=== PATIENT | female | born 1985 | race African-American/Black ===

== ENCOUNTER 2024-05-07 21:07 | Emergency (ER) | payer OTHER ==
[2024-05-07 21:12] VITALS: RESP 18; BMI 31.0
[2024-05-07] MEDS: SODIUM CHLORIDE 0.9% 500 ML INFUS.BAG IV ONE (21:57)
[2024-05-07 22:01] LABS: BASO % 1.3 % (0-2.0); EOS % 0.6 % (0-4.5); HEMATOCRIT 43.7 % (32.4-45.2); HEMOGLOBIN 15.2 GM/dL (10.7-15.3); LYMPH % 28.4 % (8-40); MCH 29.2 pg (25.7-33.7); MCHC 34.9 g/dl (32.0-36.0); MEAN CELL VOLUME 83.7 fl (80-96); MEAN PLT VOLUME 8.6 fl (7.5-11.1); MONO % 19.3 % (3.8-10.2); NEUT % 50.4 % (42.8-82.8); PLATELET COUNT 344 10^3/uL (134-434); RBC 5.22 M/mm3 (3.60-5.2); RDW 14.2 % (11.6-15.6)
[2024-05-07 22:05] LABS: EPI CELLS 22 /uL (0-25.1); HYALINE CASTS 6 /uL (0-3.1); PH,URINE 5.5 (5.0-8.0); URINE APPEARANCE CLOUDY; URINE BILIRUBIN 3+ (NEGATIVE); URINE COLOR DK YELLOW; URINE GLUCOSE (UA) NEGATIVE (NEGATIVE); URINE KETONE TRACE (NEGATIVE); URINE LEUK ESTERASE 1+ (NEGATIVE); URINE NITRITE POSITIVE (NEGATIVE); URINE PROTEIN 2+ (NEGATIVE); URINE WBC 26 /uL (0-25.8)
[2024-05-07 22:17] LABS: CHLORIDE 105 mmol/L (98-107); SODIUM 134 mmol/L (136-145)
[2024-05-07 22:18] LABS: POTASSIUM 7.3 mmol/L (3.5-5.1)
[2024-05-07 22:19] LABS: ALBUMIN 2.9 g/dl (3.4-5.0); ANION GAP 2 mmol/L (4-13); BLOOD UREA NITROGEN 11.3 mg/dL (7-18); CALCIUM 8.8 mg/dL (8.5-10.1); CO2 27 mmol/L (21-32)
[2024-05-07 22:20] LABS: GLUCOSE,RANDOM 116 mg/dL (74-106)
[2024-05-07 22:23] LABS: CREATININE 1.4 mg/dL (0.55-1.3)
[2024-05-07 22:24] LABS: BILIRUBIN,TOTAL 6.4 mg/dL (0.2-1)
[2024-05-07 22:25] LABS: ALK PHOS 165 U/L (45-117); URINE BACTERIA 63.6 /uL (0-1359); URINE RBC 96.4 /uL (0-23.9)
[2024-05-07 22:31] LABS: SGPT/ALT 3316 U/L (13-61)
[2024-05-07 22:39] LABS: ANISOCYTOSIS 1+; MACROCYTOSIS 0; TARGET CELLS 2+; TEAR DROP CELLS 1+
[2024-05-07 22:43] LABS: SGOT/AST 2169 U/L (15-37)
[2024-05-08 01:01] LABS: INR 1.39 (0.83-1.09); PROTHROMBIN TIME (PATIENT) 15.6 SEC (9.7-13.0)
[2024-05-08 01:07] LABS: POTASSIUM 3.6 mmol/L (3.5-5.1)
[2024-05-08 01:09] LABS: ALBUMIN 2.8 g/dl (3.4-5.0); BLOOD UREA NITROGEN 9.9 mg/dL (7-18); CALCIUM 8.7 mg/dL (8.5-10.1)
[2024-05-08 01:13] LABS: CREATININE 1.1 mg/dL (0.55-1.3)
[2024-05-08 01:14] LABS: BILIRUBIN,TOTAL 5.9 mg/dL (0.2-1); TOT PROT 7.6 g/dl (6.4-8.2)
[2024-05-08 01:17] VITALS: BP 160/105; PULSE 85; TEMP 98.8
[2024-05-08 18:08] LABS: HEPATITIS B SURFACE AG MATERN NON-REACTIVE (NONREACTIVE)
[2024-05-10 02:10] LABS: HCV ALPHA 2 MACRO CHART 286 mg/dL (110-276)
== END 2024-05-08 03:17 | disposition short-term general hospital (02) ==
LOC: JER 21:07
DX: R74.01 Elevation of levels of liver transaminase levels (principal); R53.83 Other fatigue; R53.1 Weakness; R51.9 Headache, unspecified; M79.10 Myalgia, unspecified site
CPT/HCPCS: 0241U-QW; 36415; 76705-TC; 80053; 81003; 82172; 82248; 82550; 82553; 82977; 83010; 83690; 83883; 84460; 84703; 85025; 85610; 86705; 86708; 87086; 87340; 87517; 87522; 99291